=== PATIENT | female | born 1990 | race Caucasian/White ===

== ENCOUNTER 2016-05-28 22:30 | Emergency (ER) | payer OTHER ==
[2016-05-28 23:39] LABS: microscopic required? YES; urine erythrocyte TRACE (NEGATIVE)
[2016-05-28 23:44] LABS: PLATELET COUNT 208 x10^3mcL (130-400)
[2016-05-28 23:45] LABS: RED CELL DISTRIBUTION WIDTH 15.8 % (11.5-14.5)
[2016-05-28 23:52] LABS: CALCIUM 8.7 mg/dL (8.5-10.1); CARBON DIOXIDE 20.8 mmol/L (21-32); CHLORIDE SERUM 97 mmol/L (98-107); CREATININE SERUM 0.7 mg/dL (0.6-1.0); GFR1 > 60 mL/min; GLUCOSE SERUM 88 mg/dL (74-106); SODIUM SERUM 132 mmol/L (136-145)
[2016-05-29 00:06] LABS: ALKALINE PHOSPHATASE 111 U/L (46-116); ALT/SGPT 13 U/L (14-59); AST/SGOT 15 U/L (15-37); BILIRUBIN TOTAL 0.8 mg/dL (0.20-1.00)
[2016-05-29 00:07] LABS: ALBUMIN 2.5 g/dL (3.4-5.0)
[2016-05-29 00:21] LABS: BAND NEUTROPHIL 3 % (0-10); MONOCYTE 7 % (0-7); SEGMENTED NEUTROPHILS 84 % (37-75)
[2016-05-29 00:22] LABS: METAMYELOCTE 1 % (0-2)
[2016-05-29 00:25] LABS: PLATELET MORPHOLOGY FEW LARGE PLATELETS; ovalocyte/elliptocyte 1+; rbc morphology (normal/abnorm) ABNORMAL (NORMAL); tear drop cell (dacryocyte) 1+
[2016-05-29 03:24] VITALS: BP 109/58
== END 2016-05-29 03:24 | disposition short-term general hospital (02) ==
LOC: ED 22:30
PROVIDERS: Emergency Medicine
DX: O23.03 Infections of kidney in pregnancy, third trimester (principal); E86.0 Dehydration; F99 Mental disorder, not otherwise specified; J45.909 Unspecified asthma, uncomplicated; F41.9 Anxiety disorder, unspecified; Z3A.33 33 weeks gestation of pregnancy
CPT/HCPCS: 87804; J0696; J7030

== ENCOUNTER 2019-12-30 12:24 | Emergency (ER) | payer OTHER ==
[~2019-12-30] VITALS: Ht 170.2 cm; Wt 97.5 kg
[2019-12-30 12:29] VITALS: BP 127/78
== END 2019-12-30 14:06 | disposition home or self-care (01) ==
LOC: ED 12:24
DX: R06.00 Dyspnea, unspecified (principal); R06.4 Hyperventilation; R53.1 Weakness; R25.1 Tremor, unspecified; J45.909 Unspecified asthma, uncomplicated; R20.2 Paresthesia of skin; Z20.828 Contact with and (suspected) exposure to other viral communicable diseases
CPT/HCPCS: 82962; U0003

== ENCOUNTER 2020-01-03 19:26 | Emergency (ER) | payer OTHER ==
[~2020-01-03] VITALS: Ht 170.2 cm; Wt 104.4 kg
[2020-01-03 19:32] VITALS: Ht 170.2 cm; Wt 104.4 kg
[2020-01-03 21:00] LABS: BASOPHIL % 0.4 % (0-2); PLATELET COUNT 360 x10^3mcL (130-400); RED CELL DISTRIBUTION WIDTH 14.1 % (11.5-14.5)
[2020-01-03 21:07] LABS: CARBON DIOXIDE 28.6 mmol/L (21-32); CHLORIDE SERUM 101 mmol/L (98-107); CREATININE SERUM 0.8 mg/dL (0.6-1.0); GFR1 > 60 mL/min; GLUCOSE SERUM 88 mg/dL (74-106); POTASSIUM SERUM 3.6 mmol/L (3.5-5.1); SODIUM SERUM 138 mmol/L (136-145)
[2020-01-03 21:35] VITALS: BP 117/85
== END 2020-01-03 21:35 | disposition home or self-care (01) ==
LOC: ED 19:26
PROVIDERS: Emergency Medicine
DX: N39.0 Urinary tract infection, site not specified (principal); J45.909 Unspecified asthma, uncomplicated